=== PATIENT | female | born 1960 | race Caucasian/White ===

== ENCOUNTER 2018-11-01 05:25 | Emergency (ER) | payer MEDICARE, OTHER ==
[~2018-11-01] VITALS: Ht 157.5 cm; Wt 70.8 kg
[2018-11-01 05:28] VITALS: BP 115/90
[2018-11-01] MEDS ORDERED: DOXY100C43 PO (05:32)
[2018-11-01] MEDS ORDERED: PRED20TA PO (05:32)
[2018-11-01] MEDS ORDERED: ALBU18HF2 INH (05:32)
[2018-11-01] MEDS ORDERED: ipratropium/albuterol 3ml nebule NEB ONE (05:35)
[2018-11-01] MEDS ORDERED: dexamethasone 4mg tablet PO ONE (05:35)
== END 2018-11-01 06:03 | disposition home or self-care (01) ==
LOC: ER 05:26
DX: J20.9 Acute bronchitis, unspecified (principal); J45.901 Unspecified asthma with (acute) exacerbation; F17.210 Nicotine dependence, cigarettes, uncomplicated; Z79.899 Other long term (current) drug therapy; Z88.1 Allergy status to other antibiotic agents
CPT/HCPCS: 94640; 94760; 99283; J8540